=== PATIENT | male | born 1995 | race Caucasian/White ===

== ENCOUNTER 2016-12-22 18:17 | Emergency (ER) | payer BC, OTHER ==
--- NOTE | 2016-12-22 19:26 | EDPHY ---
H & P Stated Complaint: flu like sxs; cough, gi sxs Time Seen by Provider: 12/22/16 19:20 HPI/ROS: CHIEF COMPLAINT: Fever, sore throat, cough, runny nose HISTORY OF PRESENT ILLNESS: The patient is a 21-year-old man who comes to the emergency department complaining of a fever, sore throat, cough or runny nose. He also had vomiting several days ago but that has improved. He was in [place] and his roommate was ill with similar symptoms. He denies headache. He denies shortness of breath or chest pain. He denies abdominal pain. REVIEW OF SYSTEMS: Constitutional: See HPI EENTM: See HPI Respiratory: See HPI Cardiac: denies: chest pain, irregular heart rate, lightheadedness, palpitations Gastrointestinal/Abdominal: denies: abdominal pain, diarrhea, nausea, vomiting, blood streaked stools Genitourinary: denies: dysuria, frequency, hematuria, pain Musculoskeletal: denies: joint pain, muscle pain Skin: denies: lesions, rash, jaundice, bruising Neurological: denies: headache, numbness, paresthesia, tingling, dizziness, weakness Hematologic/Lymphatic: denies: blood clots, easy bleeding, easy bruising Immunologic/allergic: denies: HIV/AIDS, transplant EXAM: GENERAL: Well-appearing, well-nourished and in no acute distress. HEAD: Atraumatic, normocephalic. EYES: Pupils equal round and reactive to light, extraocular movements intact, sclera anicteric, conjunctiva are normal. ENT: TMs normal, nares patent, oropharynx erythematous without exudates. Moist mucous membranes. NECK: Normal range of motion, anterior cervical lymphadenopathy or JVD. LUNGS: Breath sounds clear to auscultation bilaterally and equal. No wheezes rales or rhonchi. HEART: Regular rate and rhythm without murmurs, rubs or gallops. ABDOMEN: Soft, nontender, normoactive bowel sounds. No guarding, no rebound. No masses appreciated. BACK: No CVA tenderness, no spinal tenderness, step-offs or deformities EXTREMITIES: Normal range of motion, no pitting or edema. No clubbing or cyanosis. NEUROLOGICAL: Cranial nerves II through XII grossly intact. Normal speech, normal gait. 5/5 strength, normal movement in all extremities, normal sensation PSYCH: Normal mood, normal affect. SKIN: Warm, dry, normal turgor, no visible rashes or lesions. Source: Patient Exam Limitations: No limitations - Personal History Current Tetanus Diphtheria and Acellular Pertussis (TDAP): Yes - Medical/Surgical History Hx Asthma: No Hx Chronic Respiratory Disease: No Hx Diabetes: No Hx Cardiac Disease: No Hx Renal Disease: No Hx Cirrhosis: No Hx Alcoholism: No Other PMH: adhd - Family History Significant Family History: No pertinent family hx - Social History Smoking Status: Never smoked Alcohol Use: Sober Drug Use: None Constitutional: Initial Vital Signs Temperature (C) 36.8 C 12/22/16 18:24 Heart Rate 88 12/22/16 18:24 Respiratory Rate 18 12/22/16 18:24 Blood Pressure 142/69 H 12/22/16 18:24 O2 Sat (%) 92 12/22/16 18:24 O2 Delivery Mode Room Air Allergies/Adverse Reactions: irvin Allergy (Verified 12/22/16 18:23) Home Medications: Medication Instructions Recorded AZITHROMYCIN [Z-PACK] 250 mg PO DAILY #4 tab 12/22/16 Amphet Asp and D/Amphet [Adderall 12/22/16 20 mg (*)] Medical Decision Making ED Course/Re-evaluation: 7:50 p.m. the patient's fluid strep sober negative however his roommates strep swab is positive and they have very similar symptoms. Patient has erythematous throat. I will start him on azithromycin as well. Understands this plan. He is also requesting pain medication. Differential Diagnosis: Partial list of the Differential diagnosis considered include but were not limited to; strep throat, influenza, viral syndrome and although unlikely based on the history and physical exam, I also considered meningitis, sepsis, pneumonia, endocarditis. I discussed these differential diagnoses and the plan with the patient as well as the usual and expected course. The patient understands that the diagnosis is provisional and that in medicine we are not always correct and that further workup is often warranted. Usual and customary warnings were given. All of the patient's questions were answered. The patient was instructed to return to the emergency department should the symptoms at all worsen or return, otherwise to followup with the physician as we discussed. - Data Points Laboratory Results: 12/22/16 12/22/16 12/22/16 Unknown 19:30 19:30 Influenza Typ A,B (DFA) NEGATIVE FOR FLU (NEGATIVE) Group A Strep Screen NEGATIVE (NEGATIVE) Group A Strep DNA Pending Medications Given: Discontinued Medications Hydrocodone Bitart/Acetaminophen ([place] 5/325mg Prepack#6) 1 btl TAKEHOME EDNOW ONE Stop: 12/22/16 19:54 Last Admin: 12/22/16 20:01 Dose: 1 btl Azithromycin (Zithromax) 500 mg PO EDNOW ONE PRN Reason: Protocol Stop: 12/22/16 19:54 Last Admin: 12/22/16 20:01 Dose: 500 mg Departure - Departure Disposition: Home, Routine, Self-Care Clinical Impression: Strep throat Condition: Fair Instructions: Hydrocodone/Acetaminophen (By mouth), Strep Throat (ED) Referrals: [facility]. [Clinic] - As per Instructions Prescriptions: AZITHROMYCIN [Z-PACK] 250 mg PO DAILY #4 tab
[2016-12-22] MEDS ORDERED: HYDROCOD/APAP 5/325 PREPACK#6 BTL TAKEHOME ONE (19:53)
[2016-12-22] MEDS ORDERED: AZITHROMYCIN 250 MG TAB PO ONE (19:53)
[2016-12-22 20:13] VITALS: BP 121/72; PULSE 67; RESP 16; TEMP 98.1; O2SAT 96
== END 2016-12-22 20:12 | disposition home or self-care (01) ==
DX: J02.0 Streptococcal pharyngitis (principal)

== ENCOUNTER 2018-07-04 23:13 | Emergency (ER) | payer OTHER ==
[2018-07-04 23:20] VITALS: BP 144/81
--- NOTE | 2018-07-04 23:29 | EDPHY ---
H & P Stated Complaint: left ankle injury Time Seen by Provider: 07/04/18 23:29 HPI/ROS: HPI CHIEF COMPLAINT: Alcohol intoxication, left ankle pain. HISTORY OF PRESENT ILLNESS: 23-year-old male, otherwise healthy denies any significant medical history, states he had alcohol this evening, states he rolled his left ankle. He now has pain to left lateral malleolus and posterior aspect of his left ankle. Denies any other areas of injury. Pain level 6/10 left lateral ankle left posterior ankle. No malleolus pain. Midfoot stable without any pain. Past Medical History: Denies significant medical history Past Surgical History: Denies significant surgical history Social History: Alcohol this evening denies drugs or tobacco. Family History: Noncontributory ROS REVIEW OF SYSTEMS: 10 Systems were reviewed and negative with the exception of the elements mentioned in the history of present illness. Exam Constitutional triage nursing summary reviewed, vital signs reviewed, awake/ alert. Eyes normal conjunctivae and sclera, EOMI, PERRLA. HENT normal inspection, atraumatic, moist mucus membranes, no epistaxis, neck supple/ no meningismus, no raccoon eyes. Respiratory clear to auscultation bilaterally, normal breath sounds, no respiratory distress, no wheezing. Cardiovascular rate normal, regular rhythm, no murmur, no edema, distal pulses normal. Gastrointestinal soft, non-tender, no rebound, no guarding, normal bowel sounds, no distension, no pulsatile mass. Genitourinary no CVA tenderness. Musculoskeletal left lower extremity: Good distal pulse, good cap refill, neurovascular intact. Mild swelling noted over the left lateral malleolus. Additionally good distal pulse, good cap refill, neurovascular intact. No evidence of compartment syndrome. Achilles intact. Normal dorsiflexion and plantar flexion no midline vertebral tenderness, full range of motion, no calf swelling, no tenderness of extremities, no meningismus, good pulses, neurovascularly intact. Skin pink, warm, & dry, no rash, skin atraumatic. Neurologic awake, alert and oriented x 3, AAOx3, moves all 4 extremities equally, motor intact, sensory intact, CN II-XII intact, normal cerebellar, normal vision, normal speech. Psychiatric normal mood/affect. Heme/Lymph/Immune no lymphadenopathy. Differential Diagnosis: Includes but is not limited to in a particular order ankle sprain, ankle contusion, ankle fracture Medical Decision Making: Plan for this patient x-ray left ankle for trauma. Re-evaluation: X-ray reviewed of the left ankle. Soft tissue swelling noted. No acute fracture. Patient be placed in a walking boot. I do recommend he follows up with Podiatry due to the left ankle pain. Unclear if he truly has an old versus new navicular fracture. Patient is intoxicated. Exam is limited. Recommend walking boot. Follow up with Podiatry. He understands. Source: Patient - Personal History Current Tetanus/Diphtheria Vaccine: Yes Current Tetanus Diphtheria and Acellular Pertussis (TDAP): Yes Tetanus Vaccine Date: 2016 - Medical/Surgical History Hx Asthma: No Hx Chronic Respiratory Disease: No Hx Diabetes: No Hx Cardiac Disease: No Hx Renal Disease: No Hx Cirrhosis: No Hx Alcoholism: No Hx HIV/AIDS: No Hx Splenectomy or Spleen Trauma: No Other PMH: adhd - Social History Smoking Status: Never smoked Constitutional: Initial Vital Signs Temperature (C) 36.7 C 07/04/18 23:19 Heart Rate 98 07/04/18 23:19 Respiratory Rate 16 07/04/18 23:19 Blood Pressure 144/81 H 07/04/18 23:19 O2 Sat (%) 99 07/04/18 23:19 O2 Delivery Mode Room Air Allergies/Adverse Reactions: irvin Allergy (Verified 07/04/18 23:20) Home Medications: Medication Instructions Recorded Amphet Asp and D/Amphet [Adderall 12/22/16 20 mg (*)] Ibuprofen [Motrin (*)] 800 mg PO Q6-8PRN #10 tab 07/05/18 Medical Decision Making - Diagnostics Imaging Results: Imaging Impressions Ankle X-Ray 07/04/18 23:29 Impression: 1. Lateral soft tissue swelling without definite acute malleoli fracture. 2. Deformity of the dorsal navicular bone which may represent old trauma, please clinically correlate. Departure - Departure Disposition: Home, Routine, Self-Care Clinical Impression: Ankle sprain Qualifiers: Encounter type: initial encounter Involved ligament of ankle: unspecified ligament Laterality: left Qualified Code(s): S93.402A - Sprain of unspecified ligament of left ankle, initial encounter Condition: Good Instructions: Ankle Sprain (ED) Additional Instructions: 1. FOllow up with foot surgeon. 2. Return to er if worsening pain 3. Recommend Tylenol Motrin for pain control. 4. Recommend ice. 5. Recommend elevation Referrals: NONE *PRIMARY CARE P,. [Primary Care Provider] - As per Instructions Kristal Logan DPM [Doctor of Podiatric Medicine] - As per Instructions Prescriptions: Ibuprofen [Motrin (*)] 800 mg PO Q6-8PRN #10 tab
== END 2018-07-05 00:10 | disposition home or self-care (01) ==
DX: S93.402A Sprain of unspecified ligament of left ankle, initial encounter (principal); F10.920 Alcohol use, unspecified with intoxication, uncomplicated; W18.49XA Other slipping, tripping and stumbling without falling, initial encounter; Y92.9 Unspecified place or not applicable; Y93.9 Activity, unspecified
CPT/HCPCS: L4386